=== PATIENT | female | born 1985 | race African-American/Black ===

== ENCOUNTER 2023-04-18 16:47 | Emergency (ER) | payer OTHER ==
[2023-04-18 16:56] VITALS: BP 115/75; PULSE 93; RESP 16; TEMP 99.4; BMI 31.1
[2023-04-18] MEDS ORDERED: KETOROLAC TROMETHAMINE 30 MG/1 ML VIAL IM ONE (17:25)
[2023-04-18] MEDS ORDERED: ACETAMINOPHEN 500 MG TABLET (FP) PO ONE (17:25)
[2023-04-18] MEDS ORDERED: KETOROLAC TROMETHAMINE 30 MG/1 ML VIAL ONE (17:26)
[2023-04-18] MEDS ORDERED: ACETAMINOPHEN 500 MG TABLET (FP) ONE (17:26)
== END 2023-04-18 19:03 | disposition home or self-care (01) ==
LOC: JERFT 16:47
PROC: 3E0233Z Introduction of Anti-inflammatory into Muscle, Percutaneous Approach (ICD-10-PCS; principal; 2023-04-18)
DX: J06.9 Acute upper respiratory infection, unspecified (principal); Z20.822 Contact with and (suspected) exposure to COVID-19
CPT/HCPCS: 0241U-QW; 87651; 99284-25